=== PATIENT | female | born 1945 | race Caucasian/White ===

== ENCOUNTER 2020-01-06 16:43 | Emergency (ER) | payer MEDICARE, OTHER ==
--- NOTE | 2020-01-06 16:59 | ER Document Report ---
ED Medical Screen (RME) - General Stated Complaint: FALL - HEAD LACERATION Time Seen by Provider: 01/06/20 16:53 Primary Care Provider: ROSMEARIE ROSARIO PA-C [Primary Care Provider] - Follow up as needed TRAVEL OUTSIDE OF THE [place] IN LAST 30 DAYS: No - HPI Notes: 01/06/20 16:57 74-year-old female to the emergency department from primary care with complaints of a large laceration to the side of her left forehead. She states she was carrying her dog up the stairs on Sunday when she slipped on the stairs and struck her head. She states she tried to bandage it up herself. She states she knew she had a primary care appointment on Sunday so she decided to wait till she saw her primary care. She was sent here for further management of her laceration. She states she takes a baby aspirin but no other blood thinners. She denies any loss of consciousness, nausea vomiting, dizziness, blurry vision. On medical screening exam she has a 3-1/2 cm laceration to the left temporal region. I performed a brief medical screening exam on the patient determined that the patient needs further evaluation and management by main side provider. I have placed initial orders to help expedite care. - Related Data Allergies/Adverse Reactions: No Known Allergies Allergy (Verified 01/12/12 11:58) Past Medical History - Past Medical History Cardiac Medical History: Reports: Hx Hypertension - CARDIZEM Denies: Hx Heart Attack Pulmonary Medical History: Denies: Hx Asthma Neurological Medical History: Denies: Hx Cerebrovascular Accident, Hx Seizures GI Medical History: Denies: Hx Hepatitis, Hx Hiatal Hernia, Hx Ulcer Infectious Medical History: Denies: Hx Hepatitis Past Surgical History: Reports: Hx Tubal Ligation. Denies: Hx Open Heart Surgery, Hx Pacemaker - Immunizations Hx Diphtheria, Pertussis, Tetanus Vaccination: No Doctor's Discharge - Discharge Referrals: ROSEMARIE ROSARIO PA-C [Primary Care Provider] - Follow up as needed
--- NOTE | 2020-01-06 17:35 | RADIOLOGY REPORT (SQ) ---
EXAM DESCRIPTION: CT HEAD WITHOUT IMAGES COMPLETED DATE/TIME: 01/06/2020 5:27 pm REASON FOR STUDY: fall, head laceration COMPARISON: None. TECHNIQUE: Axial images acquired through the brain without intravenous contrast. Images reviewed wi th bone, brain and subdural windows. Additional sagittal and coronal reconstructions were generated. Images stored on PACS. All CT scanners at this facility use dose modulation, iterative reconstruction, and/or weight based d osing when appropriate to reduce radiation dose to as low as reasonably achievable (ALARA). [facility]: Dose Right [facility]: CareDose [facility]: Dose Right [facility]: Teradose 4D [facility]: Smart OrderAhead RADIATION DOSE: CT Rad equipment meets quality standard of care and radiation dose reduction techniq ues were employed. CTDIvol: 53.2 mGy. DLP: 964 mGy-cm. mGy. LIMITATIONS: None. FINDINGS: VENTRICLES: Prominent. CEREBRUM: No masses. No hemorrhage. No midline shift. Areas of low density in the white matter mos t likely due to chronic micro-vascular ischemic change. No evidence for acute infarction. CEREBELLUM: No masses. No hemorrhage. No alteration of density. No evidence for acute infarction. EXTRAAXIAL SPACES: Mild age-related involutional change. No fluid collections. No masses. ORBITS AND GLOBE: No intra- or extraconal masses. Normal contour of globe without masses. CALVARIUM: No fracture. PARANASAL SINUSES: Mild left maxillary sinus disease SOFT TISSUES: No mass or hematoma. OTHER: No other significant finding. IMPRESSION: MILD CHRONIC CHANGES OF ATROPHY AND MICROVASCULAR ISCHEMIA. NO ACUTE PROCESS. EVIDENCE OF ACUTE STROKE: NO. TECHNICAL DOCUMENTATION: JOB ID: [id number] Quality ID # [id number]: Final reports with documentation of one or more dose reduction techniques (e.g., Au tomated exposure control, adjustment of the mA and/or kV according to patient size, use of iterative reconstruction technique) 2010 [employer]- All Rights Reserved Reading location - IP/workstation name: [email or web address]
[2020-01-06] MEDS ORDERED: LIDOCAINE 1% INJ-PF (10 MG/ML) 30 ML SDV INJ ONE (19:33)
--- NOTE | 2020-01-06 19:40 | ER Document Report ---
ED General - General Chief Complaint: Fall Injury Stated Complaint: FALL - HEAD LACERATION Time Seen by Provider: 01/06/20 16:53 Primary Care Provider: ROSEMARIE ROSARIO PA-C [ALLIED HEALTH PROFESSIONAL] - Follow up as needed TRAVEL OUTSIDE OF THE [place] IN LAST 30 DAYS: No - HPI Notes: Patient is a 74-year-old female who presents to the emergency department for evaluation. She was walking up the concrete steps at her home on Sunday evening. She was carrying her dog. She tripped and struck the left side of her head on a wooden handrail. She states her tetanus shot is up-to-date. She had a doctor's appointment today, so she thought she should just wait. She has been cleaning it with alcohol, keeping it moist with Neosporin. She has minimal pain. She did states she struck her shoulder, left, but states that it feels better. She denies any numbness or tingling. - Related Data Allergies/Adverse Reactions: amoxicillin Allergy (Verified 01/06/20 17:02) Home Medications: ROXIE. ASA. AZELASTINE. CHOLESTYRAMINE. DESONIDE. DILTIAZEM. DOCYCYCLINE. EZETIMIBE. FISH OIL. FLOVENT. FUROSEMIDE. MECLIZINE. PANTOPRAZOLE. SHINGRIX. TOLTERODINE. VALSARTAN. VENTOLIN. VITAMIN B 12. VITAMIN D3 Past Medical History - General Information source: Patient - Social History Smoking Status: Never Smoker Chew tobacco use (# tins/day): No Frequency of alcohol use: None Drug Abuse: None Family History: Reviewed & Not Pertinent, Malignancy - Lung, Other - Gallbladder disease, CHF Patient has homicidal ideation: No - Medical History Notes: Anemia - Past Medical History Cardiac Medical History: Reports: Hx Congestive Heart Failure, Hx Hypertension - CARDIZEM Denies: Hx Heart Attack Pulmonary Medical History: Reports: Hx Asthma Neurological Medical History: Denies: Hx Cerebrovascular Accident, Hx Seizures GI Medical History: Reports: Hx Gastroesophageal Reflux Disease. Denies: Hx Hepatitis, Hx Hiatal Hernia, Hx Ulcer Psychiatric Medical History: Reports: Hx Depression Infectious Medical History: Denies: Hx Hepatitis Past Surgical History: Reports: Hx Tubal Ligation. Denies: Hx Open Heart Surgery, Hx Pacemaker - Immunizations Hx Diphtheria, Pertussis, Tetanus Vaccination: No Review of Systems - Review of Systems Constitutional: No symptoms reported EENT: No symptoms reported Cardiovascular: No symptoms reported Respiratory: No symptoms reported Gastrointestinal: No symptoms reported Genitourinary: No symptoms reported Musculoskeletal: See HPI Skin: See HPI Neurological/Psychological: No symptoms reported -: Yes All other systems reviewed and negative Physical Exam - Vital signs Vitals: Temp 98.1 F 01/06/20 16:54 - Notes Notes: Vital signs reviewed, please refer to chart. Head is normocephalic, atraumatic. Pupils equal round, reactive to light. Neck is supple without meningismus. Heart is regular rate and rhythm. Lungs are clear to auscultation bilaterally. Abdomen is soft, nontender, normoactive bowel sounds throughout. Extremities without cyanosis, clubbing. Posterior calves are nontender. Peripheral pulses are equal. Skin is warm and dry. Patient has a 7 cm vertically oriented curved laceration noted over the parietofrontal region of the face on the left. It is gaping approximately 1.5 cm. With significant traction I am able to reapproximate it somewhat, but not entirely. Patient is awake, alert, oriented x3. Cranial nerves II - XII are grossly intact without focal neurological deficits. Strength is plus 5 out of 5 bilateral upper and lower extremities. Sensation is intact. Reflexes symmetrical. Intact [id number], rapid alternating movements, [id number]. Course - Re-evaluation Re-evalutation: 01/06/20 19:38 Patient presents to the emergency department for evaluation. She was initially seen through triage. Her tetanus is up-to-date. Her wound has been kept clean and the margins are without need for debridement. I explained to the patient that because it has been over 48 hours since her laceration, there is an increased risk of infection, but given the gaping nature of this large wound, I am inclined to at least reapproximate it. She is amenable to this. I will again start her on Keflex. Please see separate procedure note. 01/06/20 21:20 I explained to the patient that there was a high rate of infection risk given this delayed closure. The area was thoroughly cleansed and irrigated, I do not see any foreign body, and closure was primarily for cosmetic reasons, but it may need to be opened if any signs of infection develop. She voiced understanding. She is to follow-up with her primary care provider this week for a recheck. She is to return to the ED with worsening or new concerning symptoms of any sort. - Vital Signs Vital signs: Temp Pulse Resp BP Pulse Ox 98.2 F 92 16 147/68 H 100 01/06/20 21:45 01/06/20 21:45 01/06/20 21:45 01/06/20 21:45 01/06/20 21:45 Procedures - Laceration/Wound Repair Left Upper Face Time completed: 21:04 Wound length (cm): 7 Wound's Depth, Shape: Superficial, Other - U-shaped Laceration pre-procedure: Sterile PPE donned, Chloraprep applied, Sterile drapes applied Anesthetic type: 1% Lidocaine - 6 Wound explored: Clean Wound Repaired With: Sutures Suture Size/Type: 5:0, Prolene Number of Sutures: 4 Discharge - Discharge Clinical Impression: Facial laceration Qualifiers: Encounter type: initial encounter Qualified Code(s): S01.81XA - Laceration without foreign body of other part of head, initial encounter Head injury Qualifiers: Encounter type: initial encounter Qualified Code(s): S09.90XA - Unspecified injury of head, initial encounter Condition: Stable Disposition: HOME, SELF-CARE Instructions: Antibiotic Ointment Protection ([facility]), Laceration Care ([facility]), Prophylactic Antibiotic ([facility]), Soap Cleansing ([facility]) Additional Instructions: As discussed, you do have a high risk of infection in this wound given the delayed closure. Please take the antibiotic as prescribed. Please keep clean with soap and water. Avoid submerging the wound. Have your wound rechecked by your primary care provider this week. Sutures out in 7 to 10 days. If you develop fevers, redness, drainage, vomiting, or any other new or concerning symptoms, please return immediately to the emergency department for evaluation. Prescriptions: Cephalexin Monohydrate [Keflex 500 mg Capsule] 500 mg PO TID #20 capsule Referrals: ROSEMARIE ROSARIO PA-C [ALLIED HEALTH PROFESSIONAL] - Follow up as needed
[2020-01-06] MEDS ORDERED: CEPHALEXIN 500 MG CAPSULE PO ONE (19:41)
[2020-01-06 22:59] VITALS: BP 147/68
== END 2020-01-06 22:15 | disposition home or self-care (01) ==
LOC: ER 16:43
DX: S09.90XA Unspecified injury of head, initial encounter (principal); S01.81XA Laceration without foreign body of other part of head, initial encounter; W01.198A Fall on same level from slipping, tripping and stumbling with subsequent striking against other object, initial encounter; Z79.82 Long term (current) use of aspirin; I50.9 Heart failure, unspecified; I11.0 Hypertensive heart disease with heart failure
CPT/HCPCS: 99284; 70450; 12014; A9270